=== PATIENT | female | born 1935 | race Caucasian/White ===

== ENCOUNTER 2016-10-12 20:47 | Emergency (ER) | payer MEDICARE, BC ==
[2016-10-12 22:18] LABS: Hematocrit 23 % (35-47); Hemoglobin 7.4 g/dl (12.0-16.0); Mean Corpuscular HGB Conc 33 g/dl (31-36); Mean Corpuscular Hemoglobin 26 pg (27-31); Mean Corpuscular Volume 79 fL (80-97); Red Blood Count 2.88 10^6/ul (4.0-5.4); Red Cell Distribution Width 21 % (10.5-15); White Blood Count 7.5 10^3/ul (3.5-10.8)
--- NOTE | 2016-10-12 22:19 | ED ---
Lower Extremity - HPI Summary HPI Summary: Patient is an 81yo F with a complicated health history comes to ED with a CC of bilateral knee pain at 06/01. She has had bilateral knee replacements but has not had any known complications. She was recently diagnosed with a sinus infection and was placed on amoxicillin and mucinex. She was also encouraged to discontinue her Benadryl d/t side effects of RLS. She has a history of myodisplastic syndrome, Pacemaker, CAD, spinal stenosis, osteoporosis, DM - takes insulin and PO meds, GERD, HTN, HYPOTHYROID, kathy, appy, hysterectomy. Fevered at home at 101.3, today in ED 99.9. States that the medication changes from the last few weeks has included the addition of amoxicillin and mucinex, the discontinuation of Benadryl. She has been taking all her medication as directed. She denies worsening weakness in the legs, but notes the pain is unbearable and is now unable to bear weight. The pain slightly radiates down the legs. She has not felt warmth or burning or noticed any color changes. Full ROM. No numbness or tingling worse than baseline in toes. Patient needed multiple people to help her from chair to stretcher in ambulance. Does not feel safe to go home. She is unable to take pain medications, and states the tylenol at home is not working. [ End ] - History of Current Complaint Chief Complaint: EDExtremityLower Stated Complaint: PAIN IN BOTH LEGS Time Seen by Provider: 10/12/16 21:28 Hx Obtained From: Patient Onset of Pain: Days Onset/Duration: Days Severity Initially: Moderate Severity Currently: Severe Pain Intensity: 5 Pain Scale Used: 0-10 Numeric Timing: Constant Location: Is Discrete @ - knees bilaterally radiating down both legs Character Of Pain: Aching Associated Signs And Symptoms: Positive: Knee Pain Aggravating Factor(s): Standing, Ambulation Alleviating Factor(s): Rest Able to Bear Weight: No - Risk Factors Gout Risk Factors: Age Over 40, Diabetes, Hypertension, Hyperlipidemia, Obesity DVT Risk Factors: Recent Period Of Bedrest, Recent Surgery, Recent Trauma Septic Arthritis Risk Factor: Extremes of Age, Immunosuppressed, Pre-existing Joint Disease, Prosthesis - Allergies/Home Medications Allergies/Adverse Reactions: Allergies Allergy/AdvReac Type Severity Reaction Status Date / Time Meperidine [From Demerol HCl] Allergy Severe VOMITING, Verified 08/02/15 11:31 HALLUCINATIONS Morphine Allergy Severe VOMITING, Verified 08/02/15 11:31 HALLUCINATIONS Azithromycin [From Zithromax] Allergy Unknown Unknown Verified 08/02/15 11:31 Reaction Details Sucralfate [From Carafate] Allergy Unknown Verified 08/02/15 11:31 Reaction Details Sulfa Antibiotics Allergy Unknown Verified 08/02/15 11:31 Reaction Details Codeine AdvReac Intermediate Nausea Verified 08/02/15 11:31 antibiotic - unsure Allergy Unknown Unknown Uncoded 08/02/15 11:31 Reaction Details PMH/Surg Hx/FS Hx/Imm Hx Previously Healthy: Yes Endocrine/Hematology History: Reports: Hx Diabetes, Hx Thyroid Disease - right thyroidectomy Cardiovascular History: Reports: Hx Auto Implanted Cardiovert Defib - placed 2011, Hx Hypertension, Hx Pacemaker/ICD, Other Cardiovascular Problems/ Disorders - PACEMAKER Denies: Hx Congestive Heart Failure Respiratory History: Denies: Hx Asthma, Hx Chronic Obstructive Pulmonary Disease (COPD) GI History: Reports: Hx Gastroesophageal Reflux Disease, Hx Irritable Bowel Denies: Hx Ulcer History: Reports: Hx Kidney Infection Denies: Hx Dialysis, Hx Renal Disease Musculoskeletal History: Reports: Hx Arthritis, Hx Fibromyalgia, Hx Osteoporosis Denies: Hx Back Problems Sensory History: Reports: Hx Cataracts - both eyes years ago, Hx Contacts or Glasses Opthamlomology History: Reports: Hx Cataracts - both eyes years ago, Hx Contacts or Glasses Neurological History: Reports: Hx Transient Ischemic Attacks (TIA) Denies: Hx Dementia, Hx Seizures Psychiatric History: Reports: Hx Depression - Surgical History Surgery Procedure, Year, and Place: PARTIAL THYROIDECTOMY, BILAT KNEE REPLACEMENTS with right knee revision, PACEMAKER (REPLACED APRIL 2012) tonsillectomycoccyx removalappendectomybladder repairhysterectomyvericose vein stripped in right leghernia repaircataract removal both eyesgallbladder; c- spinal surgery of C7 in 2014. SCREWS AND RODS IN NECK Hx Anesthesia Reactions: No - Immunization History Date of Tetanus Vaccine: unknown Infectious Disease History: No Infectious Disease History: Denies: Hx Hepatitis, Hx Human Immunodeficiency Virus (HIV), History Other Infectious Disease, Traveled Outside the [place] in Last 30 Days - Family History Known Family History: Positive: Cardiac Disease, Hypertension, Diabetes - Social History Occupation: Retired Lives: Alone Alcohol Use: None Hx Substance Use: No Substance Use Type: Reports: None Hx Tobacco Use: No Smoking Status (MU): Never Smoked Tobacco Review of Systems Constitutional: Negative Eyes: Negative ENT: Negative Positive: Shortness Of Breath - baseline - on O2 Gastrointestinal: Negative Positive: Arthralgia - bilateral knee pain, Myalgia - pain radiates to legs Skin: Negative Neurological: Negative Psychological: Normal All Other Systems Reviewed And Are Negative: Yes Physical Exam Triage Information Reviewed: Yes Vital Signs On Initial Exam: Initial Vitals Temp Pulse Resp BP Pulse Ox 99.9 F 73 16 178/70 95 10/12/16 20:58 10/12/16 20:58 10/12/16 20:58 10/12/16 20:58 10/12/16 20:58 Vital Signs Reviewed: Yes Appearance: Positive: Well-Appearing, No Pain Distress, Well-Nourished Skin: Positive: Warm, Skin Color Reflects Adequate Perfusion Head/Face: Positive: Normal Head/Face Inspection, Temporal Artery Tenderness Eyes: Positive: Normal, EOMI, BRIDGET ENT: Positive: Normal ENT inspection Neck: Positive: Supple, Nontender, No Lymphadenopathy Respiratory/Lung Sounds: Positive: Clear to Auscultation, Breath Sounds Present Cardiovascular: Positive: Normal Musculoskeletal: Positive: Normal, Strength/ROM Intact Neurological: Positive: Normal Psychiatric: Positive: Normal AVPU Assessment: Alert - [place] Coma Scale Coma Scale Total: 15 Diagnostics - Vital Signs Vital Signs Temp Pulse Resp BP Pulse Ox 10/12/16 21:15 71 96 10/12/16 20:58 99.9 F 73 16 178/70 95 - Laboratory Result Diagrams: 10/12/16 22:10 10/12/16 22:10 Lab Statement: Any lab studies that have been ordered have been reviewed, and results considered in the medical decision making process. Lower Extremity Course/Dx - Course Course Of Treatment: labs obtained. at baseline. concern for bilateral knee infection d/t knee replacement and myelodysplastic disorder. labs shows no signs of infection. temp at 99.9. UA OK. Patient feeling OK to go home after toradol given. will follow up with her doctor regarding these issues. Dr Tipton and Dr Israel consulted throughout stay. - Diagnoses Differential Diagnosis/HQI/PQRI: Positive: Arthritis, Osteomyelitis, Sprain Provider Diagnoses: Bilateral knee pain Discharge - Discharge Plan Condition: Stable Disposition: HOME Referrals: Pancho Rosario MD [Primary Care Provider] - Additional Instructions: Follow up with your PCP. If symptoms worsen of fail to improve, come back to ED. If you develop swelling, redness or warmth to the knees, come back to ED.
[2016-10-12 22:22] LABS: Add Diff/Slide Review? Slide Review Added; Comments Flag Yes
[2016-10-12 22:47] LABS: Albumin 3.4 g/dL (3.2-5.2); BUN/Creatinine Ratio 16.9 (8-20); Calcium 8.1 mg/dL (8.6-10.3); EGFR African American 78.3 (>60); EGFR Non-African American 60.9 (>60); Globulin 2.6 g/dL (2-4); Potassium 3.3 mmol/L (3.5-5.0); Total Bilirubin 1.1 mg/dL (0.2-1.0)
[2016-10-12 22:51] LABS: Urine Bacteria Absent (Absent); Urine Bilirubin Negative (Negative); Urine Glucose 1+(50 mg/dL) (Negative); Urine Nitrite Negative (Negative)
[2016-10-12 23:00] LABS: Mean Platelet Volume 13 um3 (7.4-10.4)
[2016-10-12 23:30] LABS: C Reactive Protein 171.76 mg/L (< 5.00); Magnesium 1.6 mg/dL (1.9-2.7)
[2016-10-12 23:44] LABS: TSH (Thyroid Stimulating Horm) 0.87 mcIU/mL (0.34-5.60)
[2016-10-13] MEDS ORDERED: Ketorolac INJ* 30 MG/ML 1 ML VIAL IV PUSH ONE
[2016-10-13 00:30] VITALS: BP 165/52
== END 2016-10-13 00:28 | disposition home or self-care (01) ==
LOC: ED 20:47
DX: M25.562 Pain in left knee (principal); M25.561 Pain in right knee; Z96.653 Presence of artificial knee joint, bilateral
CPT/HCPCS: 36415; 80053; 81003; 81015; 83605; 83735; 84443; 85025; 86140; 87040; 96374; 99282; J1885

== ENCOUNTER 2016-10-18 11:48 | Emergency (ER) | payer MEDICARE, BC ==
[2016-10-18 12:11] VITALS: BP 165/61
--- NOTE | 2016-10-18 13:53 | UC ---
Upper Extremity HPI - HPI Summary HPI Summary: PT WAS HERE IN LAB FOR BLOOD DRAW TODAY. SHOWED RIGHT FOREARM SWELLING AND REDNESS TO STAFF. SENT HERE BY DR. ABDUL FOR EVALUATION. NOTICED SOME SWELLING IN THE ARM 2 DAYS AGO AND YESTERDAY IT GOT RED AND MORE PAINFUL. NO FEVER OR SOB. NO RECENT NEEDLE STICK/IV IN THE AREA THAT SHE CAN RECALL. - History of Current Complaint Chief Complaint: UCUpperExtremity Stated Complaint: PHLEBITIS, LABS Time Seen by Provider: 10/18/16 12:53 Hx Obtained From: Patient, Family/Travel Physical Therapist - SON Onset/Duration: Gradual Onset, Lasting Days, Still Present Severity Initially: Moderate Severity Currently: Moderate Pain Intensity: 6 Pain Scale Used: 0-10 Numeric Location Of Pain: Is Discrete @ - RIGHT FOREARM Character: Aching Alleviating Factor(s): Nothing Associated Signs And Symptoms: Positive: Swelling, Redness Related History: Dominant Hand Right - Allergies/Home Medications Allergies/Adverse Reactions: Allergies Allergy/AdvReac Type Severity Reaction Status Date / Time Meperidine [From Demerol HCl] Allergy Severe VOMITING, Verified 08/02/15 11:31 HALLUCINATIONS Morphine Allergy Severe VOMITING, Verified 08/02/15 11:31 HALLUCINATIONS Azithromycin [From Zithromax] Allergy Unknown Unknown Verified 08/02/15 11:31 Reaction Details Sucralfate [From Carafate] Allergy Unknown Verified 08/02/15 11:31 Reaction Details Sulfa Antibiotics Allergy Unknown Verified 08/02/15 11:31 Reaction Details Codeine AdvReac Intermediate Nausea Verified 08/02/15 11:31 antibiotic - unsure Allergy Unknown Unknown Uncoded 08/02/15 11:31 Reaction Details Home Medications: Home Medications Acetaminophen [Tylenol 8 Hour] 10/18/16 [History] Lenalidomide(NF) [Revlimid (NF)] 5 mg PO DAILY 10/18/16 [History Confirmed 10/18] PMH/Surg Hx/FS Hx/Imm Hx Endocrine History Of: Reports: Diabetes, Thyroid Disease - right thyroidectomy Cardiovascular History Of: Reports: Cardiac Disorders - blockage, murmur, pacemaker, Hypertension, Pacemaker/ICD Denies: Congestive Heart Failure Respiratory History Of: Denies: COPD, Asthma GI/ History Of: Denies: Ulcer, Renal Disease Neurological History Of: Reports: TIA Denies: Dementia, Seizures Psychological History Of: Reports: Depression - Surgical History Surgical History: Yes Surgery Procedure, Year, and Place: PARTIAL THYROIDECTOMY, BILAT KNEE REPLACEMENTS with right knee revision, PACEMAKER (REPLACED APRIL 2012) tonsillectomycoccyx removalappendectomybladder repairhysterectomyvericose vein stripped in right leghernia repaircataract removal both eyesgallbladder; c- spinal surgery of C7 in 2014. SCREWS AND RODS IN NECK - Family History Known Family History: Positive: Cardiac Disease, Hypertension, Diabetes - Social History Alcohol Use: None Substance Use Type: None Smoking Status (MU): Never Smoked Tobacco - Immunization History Most Recent Influenza Vaccination: 2016 Most Recent Tetanus Shot: patient states within last ten years Most Recent Pneumonia Vaccination: Pt stated to have gotten vaccination on last admission. Review of Systems Constitutional: Negative Skin: Other - REDNESS RIGHT FOREARM Respiratory: Negative Cardiovascular: Negative Gastrointestinal: Negative Musculoskeletal: Edema - RIGHT FOREARM All Other Systems Reviewed And Are Negative: Yes Physical Exam Triage Information Reviewed: Yes Appearance: Well-Appearing, No Pain Distress, Well-Nourished Vital Signs: Initial Vital Signs Temp 98.3 F 10/18/16 12:02 Pulse 52 10/18/16 12:02 Resp 18 10/18/16 12:02 BP 165/61 10/18/16 12:02 Pulse Ox 98 10/18/16 12:02 Vital Signs Reviewed: Yes Eyes: Positive: Conjunctiva Clear ENT: Positive: Hearing grossly normal Neck: Positive: Supple Respiratory: Positive: No respiratory distress, No accessory muscle use Cardiovascular: Positive: Pulses Normal Abdomen Description: Positive: Soft Musculoskeletal: Positive: ROM Intact Neurological: Positive: Alert Psychological: Positive: Normal Response To Family, Age Appropriate Behavior Skin: Positive: Other - RIGHT FOREARM ERYTHEMATOUS AND SWOLLEN. CORDS PALPATED. TTP. Diagnostics - Radiology RUE US Xray Interpretation: Positive (See Comments) - The basilic vein is only partially compressible and demonstrates thickened wall. Additionally branches of the basilic vein are noncompressible and demonstrates no flow. Findings are consistent with superficial thrombophlebitis. Radiology Interpretation Completed By: Radiologist Upper Extremity Course/Dx - Differential Dx/Diagnosis Provider Diagnoses: SUPERFICIAL THROMBOPHLEBITIS RIGHT BASILIC VEIN - Physician Notification/Consults Discussed Patient Care With: DR. OLIVARES Time Discussed With Above Provider: 15:00 - AGREED WITH INITIATING NSAIDS FOR ACUTE CONDITION. F/U PCP NEXT WEEK Discharge - Discharge Plan Condition: Stable Disposition: HOME Prescriptions: Naproxen [Naproxen EC] 500 mg PO BID PRN #30 tab PRN Reason: Pain Patient Education Materials: Superficial Thrombophlebitis (ED) Referrals: Pancho Rosario MD [Primary Care Provider] - 5 Days Additional Instructions: USE WARM COMPRESSES, NAPROSYN AND BETTINA WRAP FOR COMPRESSION. FOLLOW-UP WITH YOUR PCP NEXT WEEK TO ENSURE YOU ARE IMPROVING. GO TO THE ER WITHOUT FAIL IF YOU DEVELOP WORSENING PAIN, SWELLING, SHORTNESS OF BREATH, CHEST PAIN, NAUSEA OR ANY OTHER CONCERNING SYMPTOMS.
--- NOTE | 2016-10-18 14:52 | RAD ---
Indication: Evaluate for phlebitis. Medial forearm swelling. Real-time sonography of the right upper. The deep venous system was performed. The right internal jugular vein appears patent with normal phasic flow. The left subclavian vein demonstrates normal phasic flow. Successful augmentation was obtained. The right axillary vein and brachial vein are patent. The right basilic vein in the antecubital fossa is not completely compressible. Branches of the right basilic vein also are noncompressible. There may be some minimal flow noted. This is likely due to superficial thrombophlebitis. The cephalic vein is not visualized. The radial and ulnar vein are patent and compressible. IMPRESSION: The basilic vein is only partially compressible and demonstrates thickened wall. Additionally branches of the basilic vein are noncompressible and demonstrates no flow. Findings are consistent with superficial thrombophlebitis.
== END 2016-10-18 15:21 | disposition home or self-care (01) ==
LOC: UCEAST 11:48
DX: I82.811 Embolism and thrombosis of superficial veins of right lower extremity (principal); Z88.5 Allergy status to narcotic agent; Z88.1 Allergy status to other antibiotic agents; Z88.2 Allergy status to sulfonamides; Z88.8 Allergy status to other drugs, medicaments and biological substances; Z95.0 Presence of cardiac pacemaker; Z96.653 Presence of artificial knee joint, bilateral; B36.9 Superficial mycosis, unspecified; D46.0 Refractory anemia without ring sideroblasts, so stated
CPT/HCPCS: 36415; 80053; 83540; 83550; 85025; 85060; 99212; G0463

== ENCOUNTER 2016-11-13 14:39 | Observation (INO) | payer MEDICARE, BC ==
[2016-11-13] MEDS ORDERED: Hyoscyamine TAB* 0.125 MG PO PRN (14:57)
[2016-11-13] MEDS ORDERED: Ondansetron INJ* 2 MG/ML VIAL IV PRN (14:57)
[2016-11-13] MEDS ORDERED: NS 0.9% w/ 40 Meq KCL 1000 ML* 1,000 ML IV SCH (15:00)
[2016-11-13] MEDS ORDERED: diPHENhydraMINE PO* 25 MG PO SCH (15:04)
[2016-11-13] MEDS ORDERED: Acetaminophen TAB* 325 MG PO SCH (15:04)
[2016-11-13] MEDS ORDERED: Diazepam TAB(*) 5 MG PO PRN (15:10)
[2016-11-13] MEDS ORDERED: Diphenoxylat/Atrop 2.5-0.025M* 1 TAB PO PRN (15:10)
[2016-11-13] MEDS ORDERED: Loperamide CAP* 2 MG PO PRN (16:00)
[2016-11-13] MEDS: metroNIDAZOLE IV 500 MG/100ML* 500 MG/100 ML BAG IVPB SCH (16:32)
[2016-11-13] MEDS: Ciprofloxacin 200mg IVPREMIX(* 200 MG/100 ML BAG IV SCH (17:54)
[2016-11-13] MEDS ORDERED: cloNIDine TAB* 0.1 MG PO SCH (21:00)
[2016-11-13] MEDS ORDERED: Primidone TAB(*) 50 MG PO SCH (21:00)
[2016-11-14] MEDS: metroNIDAZOLE IV 500 MG/100ML* 500 MG/100 ML BAG IVPB SCH (02:49)
[2016-11-14] MEDS: Ciprofloxacin 200mg IVPREMIX(* 200 MG/100 ML BAG IV SCH (05:19)
[2016-11-14] MEDS ORDERED: Levothyroxine TAB* 100 MCG TAB PO SCH (06:00)
[2016-11-14 06:50] LABS: Hematocrit 26 % (35-47); Hemoglobin 8.5 g/dl (12.0-16.0); Mean Corpuscular HGB Conc 33 g/dl (31-36); Mean Corpuscular Hemoglobin 27 pg (27-31); Mean Corpuscular Volume 82 fL (80-97); Red Cell Distribution Width 22 % (10.5-15); White Blood Count 3.3 10^3/ul (3.5-10.8)
[2016-11-14 06:51] LABS: Add Diff/Slide Review? Slide Review Added; Comments Flag Yes
[2016-11-14 06:57] LABS: Albumin 3.1 g/dL (3.2-5.2); BUN/Creatinine Ratio 9.6 (8-20); Calcium 7.9 mg/dL (8.6-10.3); EGFR African American 84.9 (>60); Globulin 2.8 g/dL (2-4); Magnesium 1.6 mg/dL (1.9-2.7); Total Protein 5.9 g/dL (6.4-8.9)
[2016-11-14 07:23] LABS: Potassium 3.3 mmol/L (3.5-5.0)
[2016-11-14 07:26] LABS: Burr Cells 1+; Hypochromasia 1+; Schistocytes 1+
[2016-11-14] MEDS ORDERED: Magnesium Sulf 4 GM/100 ML IV* 4,000 MG/100 ML BAG IVPB ONE (07:56)
[2016-11-14] MEDS ORDERED: KCL 20 MEQ/100 ML IVPREMIX* 20 MEQ/100 ML BAG IV ONE (07:57)
[2016-11-14] MEDS ORDERED: amLODIPine TAB* 5 MG PO SCH (09:00)
[2016-11-14] MEDS ORDERED: Magnesium Oxide TAB* 400 MG PO SCH (09:00)
[2016-11-14] MEDS ORDERED: Citalopram TAB* 10 MG PO SCH (09:00)
[2016-11-14] MEDS ORDERED: Omeprazole CAP* 20 MG PO SCH (09:00)
[2016-11-14] MEDS ORDERED: Lisinopril TAB* 10 MG PO SCH ×2 (09:00)
[2016-11-14] MEDS ORDERED: cloNIDine TAB* 0.1 MG PO SCH ×2 (09:00→18:00)
[2016-11-14] MEDS ORDERED: Potassium Chlor TAB* 20 MEQ TAB.ER PO SCH (09:00)
[2016-11-14] MEDS ORDERED: Atorvastatin* 40 MG TAB PO SCH (09:00)
--- NOTE | 2016-11-14 09:00 | DS ---
- Discharge Summary BRIEF OBV DISCHARGE SUMMARY ADMIT DATE:11/13/2016 DISCHARGE DATE:11/14/2016 DISCHARGE DIAGNOSIS: 1. symptomatic anemia 2. colitis 3. dehydration from colitis and poor PO intake 4. hypokalemia and hyponatremia 5. 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 Refractory HTN DISCHARGE MEDS: Home Medications Medication Instructions Recorded Confirmed Type Citalopram TAB* [Celexa TAB*] 10 mg PO DAILY 11/13/12 11/13/16 History Atorvastatin* [Lipitor 40 MG*] 40 mg PO DAILY 06/29/15 11/13/16 History Diazepam TAB(*) [Valium TAB(*)] 2.5 mg PO BEDTIME PRN 06/29/15 11/13/16 History Primidone TAB(*) [Mysoline TAB(*)] 150 mg PO BEDTIME 08/06/15 11/13/16 History Aspirin EC Low Dose* [Ecotrin EC 81 mg PO DAILY 07/05/16 11/13/16 History Low Dose*] Esomeprazole(NF) [Nexium(NF)] 40 mg PO DAILY 07/05/16 11/13/16 History Levothyroxine TAB* [Synthroid 100 200 mcg PO QAM 07/05/16 11/13/16 History MCG TAB*] Amlodipine Besylate-Benazepril 1 cap PO DAILY 08/04/16 11/13/16 History [Lotrel 5-20 mg] Ciprofloxacin-Ciprofloxacin Hc 1 tab PO BID 11/13/16 11/13/16 History [Ciprofloxacin ER 500 mg] 6 MORE DAYS Diphenoxylat/Atrop 2.5-0.025M* 1 tab PO TID PRN 11/13/16 11/13/16 History [Lomotil TAB*] Loperamide CAP* [Imodium CAP*] 0 mg PO SEE INSTRUCTIONS 11/13/16 11/13/16 History Metronidazole [Flagyl 500 MG TAB] 1 tab PO TID 6 MORE DAYS 11/13/16 11/13/16 History Mirabegron (NF) [Myrbetriq (NF)] 1 tab PO BEDTIME 11/13/16 11/13/16 History Hyoscyamine TAB* [Anaspaz TAB*] 0.125 mg PO Q4H PRN #90 tab NEW MED 11/14/16 Rx Lisinopril TAB* [Prinivil TAB 10 40 mg PO DAILY tab 11/14/16 Rx MG*] Magnesium Oxide TAB* [MagOx 400 400 mg PO DAILY #30 tab 11/14/16 Rx TAB*] NEW MED Nystatin SUSPENSION* 1,000,000 units PO QID #400 udc NEW MED 11/14/16 Rx Potassium Chlor TAB* [Potassium 40 meq PO DAILY #15 tab.er 11/14/16 Rx Chlor TAB 20 MEQ*] NEW MED cloNIDine TAB* [Catapres TAB*] 0.2 mg PO QPM #30 tab 11/14/16 Rx cloNIDine TAB* [Catapres TAB*] 0.4 mg PO QAM #30 tab NEW DOSE 11/14/16 Rx Hospital course: see full H+P. Briefly, admitted for symptomatic anemia, hyponatremia/ hypokalemia and dehydration related to diarrhea from colitis and poor PO intake. She was tranfused and hydrated overnight, with electrolyte repletion IV and PO. she is feeling much better this am. her stools are formed, though she is still having some cramping. She will be discharged to complete a 14 day course of her PO antibiotics and was given hyoscyamine for cramping. I have also started her on nystatin for thrush and PO mag and KCL. She will see Dr. Ortiz on Friday with labs to see if these need to be continued. Additionally she was quite hypertensive throughout her stay and her AM clonidine was increased to 0.4 mg. she was advised to follow up with her PMD in 1-2 weeks for management. Given her marked pancytopenia her revlimid will be held pending discussion with Dr. Ortiz.
[2016-11-14] MEDS: Nystatin SUSPENSION* 100000 UNITS/ML 5 ML UDC PO SCH ×2 (10:14→13:18)
[2016-11-14] MEDS ORDERED: metroNIDAZOLE IV 500 MG/100ML* 500 MG/100 ML BAG IVPB SCH (10:30)
[2016-11-14 14:44] VITALS: BP 145/46
== END 2016-11-14 15:05 | disposition home or self-care (01) ==
LOC: MED 15:46
PROVIDERS: ADMIT Internal Medicine Hematology & Oncology; ATTEND Internal Medicine Hematology & Oncology
DX: D61.818 Other pancytopenia (principal); D46.9 Myelodysplastic syndrome, unspecified; K52.9 Noninfective gastroenteritis and colitis, unspecified; E86.0 Dehydration; E87.6 Hypokalemia; I10 Essential (primary) hypertension; Z79.82 Long term (current) use of aspirin; Z23 Encounter for immunization; D46.C Myelodysplastic syndrome with isolated del(5q) chromosomal abnormality
CPT/HCPCS: 36415; 80053; 82272; 83735; 85025; 85060; 86850; 86900; 86901; 86922; 87045; 87046; 87328; 87329; 87899; 96365; 99215; 99217; 99220; A9270-GY; G0378; G0463; J0744; J3475; J3480; J3490; P9016

== ENCOUNTER 2016-11-16 08:32 | Emergency (ER) | payer MEDICARE, BC ==
[2016-11-16 09:29] VITALS: BP 112/50
--- NOTE | 2016-11-16 10:09 | UC ---
Fadia Jimenez Matthew, [facility] MD on 11/16/16 at 0917 . Upper Extremity HPI - HPI Summary HPI Summary: Nurse's Note: Left arm pain, located around the elbow, warmth, and reddened area which woke the patient up from her sleep. States she has a 7/10 intermittent pain with movement. Was recently diagnosed with a superficial blood clot, believes she has clot in the left forearm. Note: Temp 99.1F, Pulse Ox 95%, 7/10 left arm discomfort, no aclohol, non- smoker, Significant Hx of Atrial fullter, thyroidectomy, colitis, IBS, myelodysplastic syndrome, pacemaker. On 11/14 the patient was discharged for anemia, hyponatremia, hypokalemia related to diarrhea from colitis. She was transfused and hydrated overnight. She was put on PO Abx and is schedule to see Dr. Ortiz in 3 days. Hx of HTN. pancytopenia. WBC 3.3 In Room Note: An 81 y/o female presents to [facility] with left arm pain since this morning. The pain is rated 7/10 in severity and worsens with movement. The pain awoke the patient. Associated symptoms include warmth and erythema. The patient states that she had a blood clot about a week ago in her right arm. She's also c/o of back pain that recently started within the last week and is c /o of diarrhea from her Hx of colitis. - History of Current Complaint Chief Complaint: UCUpperExtremity Stated Complaint: LEFT ARM PAIN Hx Obtained From: Patient ?: No Onset/Duration: Lasting Hours, Still Present Severity Initially: Moderate Severity Currently: Moderate Pain Intensity: 7 Pain Scale Used: 0-10 Numeric Location Of Pain: Is Discrete @ - left forearm Aggravating Factor(s): Movement Associated Signs And Symptoms: Positive: Redness - Allergies/Home Medications Allergies/Adverse Reactions: Allergies Allergy/AdvReac Type Severity Reaction Status Date / Time Meperidine [From Demerol HCl] Allergy Severe VOMITING, Verified 11/16/16 09:42 HALLUCINATIONS Morphine Allergy Severe VOMITING, Verified 11/16/16 09:42 HALLUCINATIONS Azithromycin [From Zithromax] Allergy Unknown Unknown Verified 11/16/16 09:42 Reaction Details Sucralfate [From Carafate] Allergy Unknown Verified 11/16/16 09:42 Reaction Details Sulfa Antibiotics Allergy Unknown Verified 11/16/16 09:42 Reaction Details Codeine AdvReac Intermediate Nausea Verified 11/16/16 09:42 antibiotic - unsure Allergy Unknown Unknown Uncoded 11/16/16 09:42 Reaction Details PMH/Surg Hx/FS Hx/Imm Hx Endocrine History Of: Reports: Diabetes, Thyroid Disease - right thyroidectomy Cardiovascular History Of: Reports: Cardiac Disorders - A-flutter, Hypertension , Pacemaker/ICD, Deep Vein Thrombosis Denies: Congestive Heart Failure Respiratory History Of: Denies: COPD, Asthma GI/ History Of: Denies: Ulcer, Renal Disease Neurological History Of: Reports: TIA Denies: Dementia, Seizures Psychological History Of: Reports: Anxiety, Depression - Surgical History Surgical History: Yes Surgery Procedure, Year, and Place: PARTIAL THYROIDECTOMY, BILAT KNEE REPLACEMENTS with right knee revision, PACEMAKER (REPLACED APRIL 2012) tonsillectomy. coccyx removal. appendectomy. bladder repair. hysterectomy. vericose vein stripped in right leghernia repair. cataract removal both eyes. gallbladder; c-spinal surgery of C7 in 2014. SCREWS AND RODS IN NECK - Family History Known Family History: Positive: Cardiac Disease, Hypertension, Diabetes - Social History Alcohol Use: None Substance Use Type: None Smoking Status (MU): Never Smoked Tobacco Have You Smoked in the Last Year: No - Immunization History Most Recent Influenza Vaccination: 2016 Most Recent Tetanus Shot: patient states within last ten years Most Recent Pneumonia Vaccination: 2014 Review of Systems Constitutional: Negative Skin: Other - Left forearm - warmth, erythema Eyes: Negative ENT: Negative Respiratory: Negative Cardiovascular: Negative Gastrointestinal: Diarrhea Genitourinary: Negative Motor: Negative Neurovascular: Negative Musculoskeletal: Myalgia - back pain Neurological: Negative Psychological: Negative All Other Systems Reviewed And Are Negative: Yes Physical Exam Triage Information Reviewed: Yes Appearance: No Pain Distress, Well-Nourished Vital Signs: Initial Vital Signs Temp 99.1 F 11/16/16 08:38 Pulse 52 11/16/16 08:38 Resp 18 11/16/16 08:38 BP 112/52 11/16/16 08:38 Pulse Ox 95 11/16/16 08:38 Vital Signs Reviewed: Yes Eyes: Positive: Other: - BULBAR CONJUNCTIVA ARE PALE ENT: Positive: Hearing grossly normal, Pharynx normal, TMs normal. Negative: Muffled/hoarse voice Neck: Positive: Supple, Nontender Respiratory: Positive: Chest non-tender, Lungs clear, Normal breath sounds Cardiovascular: Positive: RRR, No Murmur Abdomen Description: Positive: Nontender, No Organomegaly, Soft Bowel Sounds: Positive: Present Musculoskeletal: Positive: Strength Intact Neurological: Positive: Alert Psychological: Positive: Age Appropriate Behavior Skin: Positive: Other - REDNESS OVER THE LEFT FOREARM MEDIAL SPACE JUST DISTAL TO THE ELBOW Upper Extremity Course/Dx - Course Course Of Treatment: Localized cellulitis or thrombophlebitis left forearm in a cancer patient - Differential Dx/Diagnosis Differential Diagnosis/HQI/PQRI: Septic Arthritis, Other - CELLULITIS V. THROMBOPLEBITIS Provider Diagnoses: CELLULITIS LEFT FOREARM IN PATIENT WITH WBC OF 3.3. - Physician Notification/Consults Discussed Patient Care With: Destiney ([facility]) at 09:15 -- Notified of patient's history and will accept transfer of the patient. Discharge - Discharge Plan Condition: Stable Disposition: TRANS HIGHER LVL OF CARE FAC Referrals: Pancho Rosario MD [Primary Care Provider] - Additional Instructions: WE DISCUSSED: GO TO ED NOW. I have called them about your condition. The documentation as recorded by the Fadia gilbert Matthew accurately reflects the service I personally performed and the decisions made by me, John Adams MD.
== END 2016-11-16 09:30 | disposition short-term general hospital (02) ==
LOC: UCEAST 08:32
DX: L03.114 Cellulitis of left upper limb (principal); Z88.5 Allergy status to narcotic agent; Z88.1 Allergy status to other antibiotic agents; Z88.8 Allergy status to other drugs, medicaments and biological substances; E11.9 Type 2 diabetes mellitus without complications; I10 Essential (primary) hypertension
CPT/HCPCS: 99212; G0463

== ENCOUNTER 2016-11-16 09:39 | Emergency (ER) | payer MEDICARE, BC ==
[2016-11-16] MEDS ORDERED: NS 0.9% 1000 ML* 1,000 ML IV ONE (10:26)
[2016-11-16] MEDS ORDERED: Levofloxacin 750 MG IVPREMIX(* 750 MG/150 ML BAG IVPB ONE (10:26)
[2016-11-16] MEDS ORDERED: methylPREDNISolone 125 MG* 2 ML VIAL IV ONE (10:27)
--- NOTE | 2016-11-16 11:51 | RAD ---
INDICATION: Antecubital fossa soft tissue swelling COMPARISON: None TECHNIQUE: Duplex interrogation of the antecubital fossa was performed. FINDINGS: There is a small amount soft tissue edema in the antecubital fossa. There is no localized fluid collection to suggest abscess. There is a short segment of thrombosed basilic vein consistent with superficial thrombophlebitis. IMPRESSION: SUPERFICIAL THROMBOPHLEBITIS WITH MILD EDEMATOUS CHANGE AT THE LEVEL OF THE LEFT ANTECUBITAL FOSSA
[2016-11-16 12:52] VITALS: BP 109/66
--- NOTE | 2016-11-16 15:01 | ED ---
Joselyn Jimenez Rebecca, scribed for Brandon Paige MD on 11/16/16 at 1016 . Upper Extremity Pain - HPI Summary HPI Summary: Kaci Doran is an 81 y/o F referred to [facility] [place] [place] ED from [facility] to r/o blood clot. Pt c/o intermittent L forearm pain with associated swelling that began suddenly this morning, waking her up. Pain is currently moderate, ranked 4/10 and characterized as dull. Sx aggravated by movement, alleviated by nothing. PMHx DVT. Has a blood clot in the R arm a few weeks ago. Is not currently on blood thinners. - History of Current Complaint Chief Complaint: EDExtremityUpper Stated Complaint: POSS BLOOD CLOT /LT ARM Time Seen by Provider: 11/16/16 10:14 Hx Obtained From: Patient Onset/Duration: Started Hours Ago, Still Present Timing: Intermittent Severity Initially: Moderate Severity Currently: Moderate Pain Location: Forearm - Left Character: Dull Aggravating Factor(s): Movement Alleviating Factor(s): Nothing Associated Signs & Symptoms: Positive: Swelling - Allergies/Home Medications Allergies/Adverse Reactions: Allergies Allergy/AdvReac Type Severity Reaction Status Date / Time Meperidine [From Demerol HCl] Allergy Severe VOMITING, Verified 11/16/16 09:42 HALLUCINATIONS Morphine Allergy Severe VOMITING, Verified 11/16/16 09:42 HALLUCINATIONS Azithromycin [From Zithromax] Allergy Unknown Unknown Verified 11/16/16 09:42 Reaction Details Sucralfate [From Carafate] Allergy Unknown Verified 11/16/16 09:42 Reaction Details Sulfa Antibiotics Allergy Unknown Verified 11/16/16 09:42 Reaction Details Codeine AdvReac Intermediate Nausea Verified 11/16/16 09:42 antibiotic - unsure Allergy Unknown Unknown Uncoded 11/16/16 09:42 Reaction Details PMH/Surg Hx/FS Hx/Imm Hx Endocrine/Hematology History: Reports: Hx Diabetes, Hx Thyroid Disease - right thyroidectomy Cardiovascular History: Reports: Hx Auto Implanted Cardiovert Defib - placed 2011, Hx Coronary Artery Disease, Hx Deep Vein Thrombosis, Hx Hypertension, Hx Pacemaker/ICD, Other Cardiovascular Problems/Disorders - PACEMAKER Denies: Hx Congestive Heart Failure Respiratory History: Reports: Hx Sleep Apnea Denies: Hx Asthma, Hx Chronic Obstructive Pulmonary Disease (COPD) GI History: Reports: Hx Gastroesophageal Reflux Disease, Hx Irritable Bowel Denies: Hx Ulcer History: Reports: Hx Kidney Infection Denies: Hx Dialysis, Hx Renal Disease Musculoskeletal History: Reports: Hx Arthritis, Hx Back Problems - spinal stenosis, Hx Fibromyalgia, Hx Osteoporosis Sensory History: Reports: Hx Cataracts, Hx Contacts or Glasses Opthamlomology History: Reports: Hx Cataracts, Hx Contacts or Glasses Neurological History: Reports: Hx Transient Ischemic Attacks (TIA) Denies: Hx Dementia, Hx Seizures Psychiatric History: Reports: Hx Anxiety, Hx Depression - Cancer History Cancer Type, Location and Year: myelodysplastic syndrome - Surgical History Surgery Procedure, Year, and Place: PARTIAL THYROIDECTOMY, BILAT KNEE REPLACEMENTS with right knee revision, PACEMAKER (REPLACED APRIL 2012) tonsillectomycoccyx removalappendectomybladder repairhysterectomyvericose vein stripped in right leghernia repaircataract removal both eyesgallbladder; c- spinal surgery of C7 in 2014. SCREWS AND RODS IN NECK Hx Anesthesia Reactions: No - Immunization History Date of Tetanus Vaccine: unknown Date of Influenza Vaccine: Fall 2015 Infectious Disease History: No Infectious Disease History: Denies: Hx Hepatitis, Hx Human Immunodeficiency Virus (HIV), History Other Infectious Disease, Traveled Outside the [place] in Last 30 Days - Family History Known Family History: Positive: Cardiac Disease, Hypertension, Diabetes - Social History Alcohol Use: None Hx Substance Use: No Substance Use Type: Reports: None Hx Tobacco Use: No Smoking Status (MU): Never Smoked Tobacco Review of Systems Positive: Arthralgia - L forearm pain Positive: Other - L forearm swelling All Other Systems Reviewed And Are Negative: Yes Physical Exam Triage Information Reviewed: Yes Vital Signs On Initial Exam: Initial Vitals Temp Pulse Resp BP Pulse Ox 99.4 F 50 16 144/47 99 11/16/16 09:42 11/16/16 09:42 11/16/16 09:42 11/16/16 09:42 11/16/16 09:42 Vital Signs Reviewed: Yes Appearance: Positive: Well-Appearing, No Pain Distress Skin: Positive: Warm, Skin Color Reflects Adequate Perfusion, Dry Head/Face: Positive: Normal Head/Face Inspection Eyes: Positive: Normal ENT: Positive: Normal ENT inspection Neck: Positive: Supple, Nontender Respiratory/Lung Sounds: Positive: Clear to Auscultation, Breath Sounds Present Cardiovascular: Positive: RRR, Pulses are Symmetrical in both Upper and Lower Extremities Abdomen Description: Positive: Nontender, Soft Bowel Sounds: Positive: Present Musculoskeletal: Positive: Other - Very mild swelling and erythema in the left antecubital medical proximal forearm Neurological: Positive: Normal Psychiatric: Positive: Normal, Affect/Mood Appropriate - [place] Coma Scale Coma Scale Total: 15 Diagnostics - Vital Signs Vital Signs Temp Pulse Resp BP Pulse Ox 11/16/16 10:00 51 111/54 97 11/16/16 09:55 48 97 11/16/16 09:53 104/62 11/16/16 09:42 99.4 F 50 16 144/47 99 - Laboratory Lab Statement: Any lab studies that have been ordered have been reviewed, and results considered in the medical decision making process. - Ultrasound No standard instances Ultrasound Interpretation Completed By: Radiologist - Soft Tissue US: SUPERFICIAL THROMBOPHLEBITIS WITH MILD EDEMATOUS CHANGE AT THE LEVEL OF THE LEFT ANTECUBITAL FOSSA Re-Evaluation - Re-Evaluation First Eval Re-Evaluation Time: 12:31 Change: Improved Comment: Discussed results and findings. Pt is agreeable with discharge plan. Course/Dx - Course Assessment/Plan: Kaci Doran is an 81 y/o F referred from [facility] to r/o blood clot. She c/o L forearm swelling and pain since this morning. PMHx DVT. Blood clot in the R arm a few weeks ago. Is not on blood thinners. Sort tissue US reveals: "SUPERFICIAL THROMBOPHLEBITIS WITH MILD EDEMATOUS CHANGE AT THE LEVEL OF THE. LEFT ANTECUBITAL FOSSA." She will be D/C to home with a dx of superficial thrombophlebitis with a followup with her PCP. - Diagnoses Provider Diagnoses: Superficial thrombophlebitis Discharge - Discharge Plan Condition: Stable Disposition: HOME Patient Education Materials: Superficial Thrombophlebitis (ED) Referrals: Pancho Rosario MD [Primary Care Provider] - 3 Days (Follow up with your primary care physician in the next 3 days. ) The documentation as recorded by the Joselyn gilbert Rebecca accurately reflects the service I personally performed and the decisions made by me, Brandon Paige MD.
== END 2016-11-16 12:52 | disposition home or self-care (01) ==
LOC: ED 09:39
DX: I80.8 Phlebitis and thrombophlebitis of other sites (principal); M79.632 Pain in left forearm; R22.32 Localized swelling, mass and lump, left upper limb; L03.114 Cellulitis of left upper limb; Z88.5 Allergy status to narcotic agent; Z88.1 Allergy status to other antibiotic agents; Z88.8 Allergy status to other drugs, medicaments and biological substances; E11.9 Type 2 diabetes mellitus without complications; I10 Essential (primary) hypertension
CPT/HCPCS: 96374; 99212; 99283; G0463

== ENCOUNTER 2016-12-09 14:33 | Emergency (ER) | payer MEDICARE, BC ==
[2016-12-09 15:59] LABS: Hemoglobin 7.8 g/dl (12.0-16.0)
[2016-12-09 16:05] LABS: Albumin 3.7 g/dL (3.2-5.2); BUN/Creatinine Ratio 24.4 (8-20); Calcium 8.5 mg/dL (8.6-10.3); EGFR Non-African American 66.9 (>60); Potassium 3.7 mmol/L (3.5-5.0); Total Bilirubin 0.6 mg/dL (0.2-1.0); Total Protein 6.7 g/dL (6.4-8.9)
[2016-12-09 16:06] LABS: Troponin I 0.01 ng/mL (<0.04)
[2016-12-09 16:07] LABS: Hematocrit 24 % (35-47); Mean Corpuscular HGB Conc 33 g/dl (31-36); Mean Corpuscular Hemoglobin 27 pg (27-31); Mean Corpuscular Volume 82 fL (80-97); Red Blood Count 2.91 10^6/ul (4.0-5.4); Red Cell Distribution Width 21 % (10.5-15); White Blood Count 1.8 10^3/ul (3.5-10.8)
--- NOTE | 2016-12-09 16:09 | RAD ---
HISTORY: Soreness of breath COMPARISONS: August 04, 2015 VIEWS: 2: Frontal and lateral views of the chest. FINDINGS: CARDIOMEDIASTINAL SILHOUETTE: The cardiomediastinal silhouette is normal. NEEL: The neel are normal. PLEURA: There is a small left pleural effusion. LUNG PARENCHYMA: There is hyperinflation with flattening of the diaphragm and expansion of the AP diameter of the chest. ABDOMEN: The upper abdomen is clear. There is no subphrenic gas. BONES AND SOFT TISSUES: No bone or soft tissue abnormalities are noted. OTHER: There is left-sided pacemaker IMPRESSION: COPD. SMALL LEFT PLEURAL EFFUSION.
[2016-12-09 16:11] LABS: Add Diff/Slide Review? Slide Review Added; Comments Flag Yes
[2016-12-09 16:47] LABS: Schistocytes 1+
[2016-12-09 16:48] LABS: Add Path Review? YES
--- NOTE | 2016-12-09 17:30 | ED ---
Marissa Jimenez Alok, scribed for Maribel Segura MD on 12/09/16 at 1543 . Complex/Multi-Sys Presentation - HPI Summary HPI Summary: 81 y/o female presents to the ED for concern over a low platelet count first observed after seeing Dr. Ortiz 6 days ago. Pt also notes a rash on her chest as well as SOB on exertion, diarrhea for the last 2 months, and a HINES earlier this morning. Pt denies any gum bleeding or hematochezia. PMHx includes DM and HTN. - History Of Current Complaint Chief Complaint: EDShortnessOfBreath Time Seen by Provider: 12/09/16 15:03 Hx Obtained From: Patient Onset/Duration: Gradual Onset, Lasting Days, Still Present Timing: Constant, Days Severity Currently: Moderate Severity Initially: Moderate Character: Typical Headache Associated Signs And Symptoms: Positive: Headache, SOB, Diarrhea, Other - Rash on chest. Low Platelet count. - Allergies/Home Medications Allergies/Adverse Reactions: Allergies Allergy/AdvReac Type Severity Reaction Status Date / Time Meperidine [From Demerol HCl] Allergy Severe VOMITING, Verified 12/09/16 14:46 HALLUCINATIONS Morphine Allergy Severe VOMITING, Verified 12/09/16 14:46 HALLUCINATIONS Azithromycin [From Zithromax] Allergy Unknown Unknown Verified 12/09/16 14:46 Reaction Details Sucralfate [From Carafate] Allergy Unknown Verified 12/09/16 14:46 Reaction Details Sulfa Antibiotics Allergy Unknown Verified 12/09/16 14:46 Reaction Details Codeine AdvReac Intermediate Nausea Verified 12/09/16 14:46 antibiotic - unsure Allergy Unknown Unknown Uncoded 12/09/16 14:46 Reaction Details PMH/Surg Hx/FS Hx/Imm Hx Endocrine/Hematology History: Reports: Hx Diabetes, Hx Thyroid Disease - right thyroidectomy Cardiovascular History: Reports: Hx Auto Implanted Cardiovert Defib - placed 2011, Hx Coronary Artery Disease, Hx Deep Vein Thrombosis, Hx Hypertension, Hx Pacemaker/ICD, Other Cardiovascular Problems/Disorders - PACEMAKER Denies: Hx Congestive Heart Failure Respiratory History: Reports: Hx Sleep Apnea Denies: Hx Asthma, Hx Chronic Obstructive Pulmonary Disease (COPD) GI History: Reports: Hx Gastroesophageal Reflux Disease, Hx Irritable Bowel Denies: Hx Ulcer History: Reports: Hx Kidney Infection Denies: Hx Dialysis, Hx Renal Disease Musculoskeletal History: Reports: Hx Arthritis, Hx Back Problems - spinal stenosis, Hx Fibromyalgia, Hx Osteoporosis Sensory History: Reports: Hx Cataracts, Hx Contacts or Glasses Opthamlomology History: Reports: Hx Cataracts, Hx Contacts or Glasses Neurological History: Reports: Hx Transient Ischemic Attacks (TIA) Denies: Hx Dementia, Hx Seizures Psychiatric History: Reports: Hx Anxiety, Hx Depression - Cancer History Cancer Type, Location and Year: myelodysplastic syndrome - Surgical History Surgery Procedure, Year, and Place: PARTIAL THYROIDECTOMY, BILAT KNEE REPLACEMENTS with right knee revision, PACEMAKER (REPLACED APRIL 2012) tonsillectomycoccyx removalappendectomybladder repairhysterectomyvericose vein stripped in right leghernia repaircataract removal both eyesgallbladder; c- spinal surgery of C7 in 2014. SCREWS AND RODS IN NECK Hx Anesthesia Reactions: No - Immunization History Date of Tetanus Vaccine: unknown Date of Influenza Vaccine: Fall 2015 Infectious Disease History: No Infectious Disease History: Denies: Hx Hepatitis, Hx Human Immunodeficiency Virus (HIV), History Other Infectious Disease, Traveled Outside the [place] in Last 30 Days - Family History Known Family History: Positive: Cardiac Disease, Hypertension, Diabetes - Social History Alcohol Use: None Hx Substance Use: No Substance Use Type: Reports: None Hx Tobacco Use: No Smoking Status (MU): Never Smoked Tobacco Review of Systems Constitutional: Negative Negative: Fever, Chills, Fatigue Eyes: Negative Negative: Photophobia, Blurred Vision, Diplopia ENT: Negative Negative: Dental Pain, Sore Throat, Ear Ache Cardiovascular: Negative Negative: Chest Pain Respiratory: Negative Positive: Shortness Of Breath - has this at baseline not changed today Gastrointestinal: Negative Positive: Diarrhea. Negative: Abdominal Pain, Vomiting Genitourinary: Negative Musculoskeletal: Negative Positive: Rash - Chest Neurological: Negative Psychological: Normal All Other Systems Reviewed And Are Negative: Yes Physical Exam Triage Information Reviewed: Yes Vital Signs On Initial Exam: Initial Vitals Temp Pulse Resp BP Pulse Ox 98.8 F 54 16 148/66 100 12/09/16 14:46 12/09/16 14:46 12/09/16 14:46 12/09/16 14:46 12/09/16 14:46 Vital Signs Reviewed: Yes Appearance: Positive: Well-Appearing, No Pain Distress Skin: Positive: Warm, Skin Color Reflects Adequate Perfusion, Dry, Other - Petechiae upper chest. Eyes: Positive: EOMI, BRIDGET ENT: Positive: Pharynx normal, TMs normal Neck: Positive: Supple, Nontender Respiratory/Lung Sounds: Positive: Clear to Auscultation, Breath Sounds Present. Negative: Rales, Rhonchi, Wheezes Cardiovascular: Positive: Normal. Negative: Murmur, Rub, Other - Gallops Abdomen Description: Positive: Nontender, Soft Bowel Sounds: Positive: Present Musculoskeletal: Positive: Strength/ROM Intact. Negative: Edema Left, Edema Right Neurological: Positive: Sensory/Motor Intact, Alert, Oriented to Person Place, Time, CN Intact II-III Psychiatric: Positive: Affect/Mood Appropriate - [place] Coma Scale Coma Scale Total: 15 Diagnostics - Vital Signs Vital Signs Temp Pulse Resp BP Pulse Ox 12/09/16 15:37 99.2 F 50 21 178/53 98 12/09/16 15:35 99.2 F 52 21 179/67 98 12/09/16 15:23 99.2 F 54 21 179/67 98 12/09/16 15:18 53 20 173/57 98 12/09/16 15:11 55 15 98 12/09/16 15:08 167/95 12/09/16 14:46 98.8 F 54 16 148/66 100 - Laboratory Lab Results: Lab Results 12/09/16 12/09/16 12/09/16 Range/Units 15:15 15:15 15:15 WBC 1.8 L (3.5-10.8) 10^3/ul RBC 2.91 L (4.0-5.4) 10^6/ul Hgb 7.8 L (12.0-16.0) g/dl Hct 24 L (35-47) % MCV 82 (80-97) fL MCH 27 (27-31) pg MCHC 33 (31-36) g/dl RDW 21 H (10.5-15) % Plt Count 21 L (150-450) 10^3/ul MPV Not Reportable Neut % (Auto) 16.7 L (38-83) % Lymph % (Auto) 75.8 H (25-47) % [place] % (Auto) 3.7 (1-9) % Eos % (Auto) 1.3 (0-6) % Baso % (Auto) 2.5 H (0-2) % Absolute Neuts (auto) 0.3 L* (1.5-7.7) 10^3/ul Absolute Lymphs (auto) 1.3 (1.0-4.8) 10^3/ul Absolute Monos (auto) 0.1 (0-0.8) 10^3/ul Absolute Eos (auto) 0 (0-0.6) 10^3/ul Absolute Basos (auto) 0 (0-0.2) 10^3/ul Absolute Nucleated RBC 0 10^3/ul Nucleated RBC % 0.1 Normal RBC Morphology Not Reportable Acanthocytes (Spur) 2+ Schistocytes 1+ Hem Pathologist Commnt Pending INR (Anticoag Therapy) 1.10 (0.89-1.11) Sodium 132 L (133-145) mmol/L Potassium 3.7 (3.5-5.0) mmol/L Chloride 100 L (101-111) mmol/L Carbon Dioxide 27 (22-32) mmol/L Anion Gap 5 (2-11) mmol/L BUN 20 (6-24) mg/dL Creatinine 0.82 (0.51-0.95) mg/dL Est GFR ( Amer) 86.0 (>60) Est GFR (Non-Af Amer) 66.9 (>60) BUN/Creatinine Ratio 24.4 H (8-20) Glucose 119 H (70-100) mg/dL Lactic Acid (0.5-2.0) mmol/L Calcium 8.5 L (8.6-10.3) mg/dL Total Bilirubin 0.60 (0.2-1.0) mg/dL AST 12 L (13-39) U/L ALT 7 (7-52) U/L Alkaline Phosphatase 58 (34-104) U/L Troponin I 0.01 (<0.04) ng/mL Total Protein 6.7 (6.4-8.9) g/dL Albumin 3.7 (3.2-5.2) g/dL Globulin 3.0 (2-4) g/dL Albumin/Globulin Ratio 1.2 (1-3) 12/09/16 Range/Units 15:15 WBC (3.5-10.8) 10^3/ul RBC (4.0-5.4) 10^6/ul Hgb (12.0-16.0) g/dl Hct (35-47) % MCV (80-97) fL MCH (27-31) pg MCHC (31-36) g/dl RDW (10.5-15) % Plt Count (150-450) 10^3/ul MPV Neut % (Auto) (38-83) % Lymph % (Auto) (25-47) % [place] % (Auto) (1-9) % Eos % (Auto) (0-6) % Baso % (Auto) (0-2) % Absolute Neuts (auto) (1.5-7.7) 10^3/ul Absolute Lymphs (auto) (1.0-4.8) 10^3/ul Absolute Monos (auto) (0-0.8) 10^3/ul Absolute Eos (auto) (0-0.6) 10^3/ul Absolute Basos (auto) (0-0.2) 10^3/ul Absolute Nucleated RBC 10^3/ul Nucleated RBC % Normal RBC Morphology Acanthocytes (Spur) Schistocytes Hem Pathologist Commnt INR (Anticoag Therapy) (0.89-1.11) Sodium (133-145) mmol/L Potassium (3.5-5.0) mmol/L Chloride (101-111) mmol/L Carbon Dioxide (22-32) mmol/L Anion Gap (2-11) mmol/L BUN (6-24) mg/dL Creatinine (0.51-0.95) mg/dL Est GFR ( Amer) (>60) Est GFR (Non-Af Amer) (>60) BUN/Creatinine Ratio (8-20) Glucose (70-100) mg/dL Lactic Acid 1.4 (0.5-2.0) mmol/L Calcium (8.6-10.3) mg/dL Total Bilirubin (0.2-1.0) mg/dL AST (13-39) U/L ALT (7-52) U/L Alkaline Phosphatase (34-104) U/L Troponin I (<0.04) ng/mL Total Protein (6.4-8.9) g/dL Albumin (3.2-5.2) g/dL Globulin (2-4) g/dL Albumin/Globulin Ratio (1-3) Result Diagrams: 12/09/16 15:15 12/09/16 15:15 Lab Statement: Any lab studies that have been ordered have been reviewed, and results considered in the medical decision making process. - Radiology CXR Xray Interpretation: Positive (See Comments) - IMPRESSION: COPD. SMALL LEFT PLEURAL EFFUSION. Radiology Interpretation Completed By: Radiologist Complex Multi-Symp Course/Dx Course Of Treatment: talked with Dr. Rueda given plts above 15 pt is ok to go home. no bleeding - Diagnoses Provider Diagnoses: Myelodysplasia (myelodysplastic syndrome) Discharge - Discharge Plan Condition: Stable Disposition: HOME The documentation as recorded by the Marissa gilbert Alok accurately reflects the service I personally performed and the decisions made by me, Maribel Segura MD.
[2016-12-09 17:44] VITALS: BP 201/68
== END 2016-12-09 17:42 | disposition home or self-care (01) ==
LOC: ED 14:33
DX: D46.9 Myelodysplastic syndrome, unspecified (principal); R51 Headache; R06.02 Shortness of breath; R19.7 Diarrhea, unspecified; R21 Rash and other nonspecific skin eruption; Z86.79 Personal history of other diseases of the circulatory system; D61.818 Other pancytopenia; D46.C Myelodysplastic syndrome with isolated del(5q) chromosomal abnormality
CPT/HCPCS: 36415; 71020; 80053; 83605; 84484; 85025; 85060; 85610; 99283